=== PATIENT | male | born 1950 | race Caucasian/White ===

== ENCOUNTER 2021-05-30 06:42 | Inpatient (IN) ==
--- NOTE | 2021-05-23 12:46 | History & Physical Report ---
Date of Service May 23, 2021 date of surgery: 05/30/21 Procedure: Right Total Knee Arthroplasty Surgeon: Shad Christopher Assessment & Plan (1) Arthritis of right knee: Plan: presents for evaluation of right knee pain, has been chronic in nature. he has undergone recent viscosupplementation without any relief. He uses NSAIDs and Tylenol without relief. no improvement with Euflexxa. we discussed options and reviewed x-rays, showing advanced DJD of the right knee. he would like to proceed with right total knee arthroplasty, richey and nephew patient matched at [facility], he would like to be outpatient joint program. will place patient on ASA 81mg po bid x 1 month post op for DVT prophylaxis. The risks and benefits have been discussed including, but not limited to, risk of infection, nerve injury, stiffness, loss of motion, failure to improve, etc. Reasonable outcomes and options of treatment were discussed. An explanation of appropriate alternatives to the procedure that may be advantageous were discussed and their risks and benefits, as well as the risks and benefits of not proceeding with treatment. I offered to answer any additional inquiries concerning the treatment involved. All the patient's questions were answered. The patient is agreeable, understanding of the treatment plan and alternatives, and wishes to proceed with the treatment plan. History of Present Illness Chief Complaint: right knee pain Primary Care Provider: Mohan Breaux MD Mr Carr is a 70 year old male who complains of right knee pain, presents for pre-op evaluation prior to a right total knee replacement by Dr Christopher at [facility]. He complains of pain, decreased range of motion and stiffness in his right knee. Currently the patient states that the symptoms are moderate-severe and rated as 6/10. The pain is described as aching, sharp and throbbing. His symptoms are aggravated by ascending stairs, daily activities, first steps while awake walking. Prior NSAIDs include IBU and Aleve, as well as uses Tylenol for pain. He has been treated with previous visco injections in the past without much relief. Allergies Allergy/AdvReac Type Severity Reaction Status Date / Time No Known Allergies Allergy Verified 12/08/20 10:45 Home Medications Medication Instructions Recorded Confirmed Type ascorbic acid (vitamin C) 500 mg 500 mg PO QAM 12/08/20 12/08/20 History chewable tablet (Vitamin C) cannabidiol 1 tab PO DAILY 12/08/20 12/08/20 History omeprazole 20 mg capsule,delayed 20 mg PO QAM 12/08/20 12/08/20 History release tramadol 50 mg tablet 100 mg PO Q6H PRN 12/08/20 12/08/20 History Past Med/Surg History Medical History Degenerative joint disease Diastolic dysfunction Noted on echo-patient asymptomatic per PCP note Dyslipidemia GERD (gastroesophageal reflux disease) Well controlled, stable. Granuloma annulare Hypertension Controlled per patient Osteoarthritis Type 2 diabetes mellitus Controlled with weight and diet per patient Surgical History History of cataract surgery R/L History of colonoscopy History of esophagogastroduodenoscopy (EGD) History of herniorrhaphy History of tonsillectomy S/P trigger finger release R/L ring finger Family History Brother Family hx of colon cancer Social History Smoking Status: Never smoker Second Hand Exposure: No; Hx Alcohol Use: No Hx Substance Use: No Preferred Language: Urdu Communication Ability: Effective Air Brake Adjuster Required: No Beliefs That Will Affect Care: None Current Living Situation: Spouse Feels Safe at Home: Yes Assistive Devices: Denture - Upper and Denture - Lower Review of Systems Review of Systems: All systems reviewed & are unremarkable except as noted in HPI & below Constitutional: no fever, no chills and no sweats Respiratory: no cough and no dyspnea Cardiovascular: no chest pain, no dyspnea and no orthopnea Gastrointestinal: no abdominal pain, no nausea and no vomiting Musculoskeletal: as per Subjective / HPI Physical Exam Physical Exam: HT: 5ft 6in WT: 90.72kg Constitutional: WD/WN, vitals as above no acute distress Respiratory: normal respiratory effort, lungs clear to auscultation no respiratory distress, no labored breathing and does not use accessory muscles Cardiovascular: RRR, no murmur, no edema Gastrointestinal (Abdomen): normal bowel sounds, soft, nontender, no hepatosplenomegaly Musculoskeletal: Knee: + knee abnormal to inspection (RIGHT KNEE- ), + effusion (+1 effusion), + limited ROM of knee (ROM 0/3/110), + knee ROM with crepitation, + joint line tenderness (medial joint line) and + Kaylynn's sign positive; no deformity, no skin erythema, no ecchymosis, no valgus laxity, no varus laxity, anterior drawer test negative, Timothy's sign negative and pivot shift test negative Results & Data Results & Data ([facility]) Diagnostic Findings 4 views right knee showing advanced DJD of the right knee, bone on bone changes, narrowing medial compartment an PF joint with osteophyte formation and subchondral sclerosis and cystic changes. no acute bony pathology noted. Assessment: DJD of the right knee
--- NOTE | 2021-05-28 11:48 | Anesthesiology Consultation ---
Date of Service May 28, 2021 Assessment & Plan (1) Encounter for pre-operative examination: - check BSG am DOS. - medical pre-op evaluation and clearance 05/25/2021 [facility]: "...Dr. Christopher. Pre- operative evaluation for: TKA, right...hypertension borderline today. Has stopped losartan. Could consider better control, but not inhibiting of surgery...A1c 6.2%...can proceed as scheduled..." - Outpatient (Same Day) Joint Pathway assessment: Patient determined by cardiology to be a "moderate perioperative cardiovascular risk secondary to limited functional capacity and risk factors." Given decreased functional capaci ty and elevated cardiac risk assessment, patient is not appropriate candidate for outpatient joint pathway. - Per Dr. Wilkinsoni1 "Stress echo negative for inducible ischemia. Stable aortic valve sclerosis and mild aortic valve regurgitation.Patient may proceed with orthopedic surgery." - COVID screening: Per cutter down on 05/24/2021: Travel screen negative, no known COVID-19 positive contacts or current COVID-19 related symptoms in past 2 weeks. Patient vaccinated. Surgeon arranging preop COVID testing, scheduled 05/28/2021. Awaiting results. Chart Review Chart Review: Acceptable Risk for Surgery and Patient NOT seen in Pre Admission Testing History Surgery Operation Date: 05/30/21 09:25 Proposed Procedures p Right Total Knee Arthroplasty - Shad Christopher DO Surgery re-scheduled since 11/2020 PAT anesthesia review. Height/Weight Height: 5 ft 6 in Weight: 88.451 kg Allergies Allergy/AdvReac Type Severity Reaction Status Date / Time No Known Allergies Allergy Verified 05/24/21 13:55 Medications Home Medications Medication Instructions Recorded Confirmed Last Taken ascorbic acid (vitamin C) 500 mg 500 mg PO QAM 12/08/20 05/24/21 Unknown chewable tablet (Vitamin C) cannabidiol 1 tab PO DAILY 12/08/20 05/24/21 Unknown omeprazole 20 mg capsule,delayed 20 mg PO QAM 12/08/20 05/24/21 Unknown release tramadol 50 mg tablet 100 mg PO Q6H PRN 12/08/20 05/24/21 Unknown Vitamin D3 1 dose PO QAM 05/24/21 05/24/21 Unknown Past Medical History Medical History Bug bites says went to [facility] a few days ago with mult bug bits to arms, left ankle -- was told they were mite bites -- said none on RLE. given topical cream and cleared up. instructed to make surgeon's office aware. Degenerative joint disease Diastolic dysfunction Noted on echo-patient asymptomatic per PCP note Dyslipidemia GERD (gastroesophageal reflux disease) Well controlled, stable. Granuloma annulare Hypertension Controlled per patient Osteoarthritis Type 2 diabetes mellitus Controlled with weight and diet per patient Past Family History Family History Brother Family hx of colon cancer Past Surgical History Surgical History History of cataract surgery R/L History of colonoscopy History of esophagogastroduodenoscopy (EGD) History of herniorrhaphy History of tonsillectomy S/P trigger finger release R/L ring finger Past Anesthesia History No Hx of Anesthesia Complications History of PONV No Hx of Motion Sickness Social History Smoking Status: Never smoker Do You Dip or Chew Tobacco: No Hx Alcohol Use: No Hx Substance Use: No substance use type: does not use Review of Systems Snoring reported by patient's per patient. Denies witnessed apneas or sleep study. Patient denies chest pain, shortness of breath, dyspnea on exertion, fever, chills, cough, wheezing, palpitations. Physical Exam Vital Signs Vitals BP 171/79 P 77 TEMP 98.5 SP02 95 RESP 16 Patient states is anxious at visits for his pre-op consultations including study, confirms that all questions were fully answered to his satisfaction today. He denied additional questions or concerns. Patient reports home BP readings 130s/70s. Full cervical extension range of motion without pain. Full TMJ range of motion. TMD 3.5 finger breaths Mallampati Score 2 Dentition: edentulous, full upper and lower dentures Lungs: Normal respiratory effort. Clear throughout to auscultation, no adventitious breath sounds Cardiac: regular rate and rhythm, no murmurs noted Carotid arteries: negative bruit bilat Extremities: no distal extremity edema Lab Results Anesthesia Preop Results Results Anesthesia Widget: WBC 9.31 K/uL (4.8-10.8) 05/24/21 Hgb 15.3 g/dL (14.0-18.0) 05/24/21 Hct 44.9 % (42-52) 05/24/21 Plt 252 K/uL (130-400) 05/24/21 Na 136 mmol/L (136-145) 05/24/21 K 4.1 mmol/L (3.5-5.1) 05/24/21 Cl 103 mmol/L (98-107) 05/24/21 CO2 27 mmol/L (21-32) 05/24/21 BUN 18 mg/dl (6-23) 05/24/21 Creat 0.99 mg/dl (0.6-1.4) 05/24/21 Glucose Level 111 mg/dl (70-99(Fasting)) H 05/24/21 PT 10.8 Seconds (9.0-12.0) 05/24/21 PTT 29.0 Seconds (21.0-31.0) 05/24/21 INR 1.0 (0.9-1.1) 05/24/21 HA1c 6.2 % (4.5-5.6) H 05/24/21 Urine Color Yellow 05/24/21 Urine Appearance Clear (Clear) 05/24/21 Urine pH 5.0 (4.5-7.5) 05/24/21 Urine Specific [place] 1.021 (1.000-1.030) 05/24/21 Urine Protein Negative (Negative) 05/24/21 Urine Glucose (UA) Negative (Negative) 05/24/21 Urine Ketones Negative (Negative) 05/24/21 Urine Blood Negative (Negative) 05/24/21 Urine Nitrite Negative (Negative) 05/24/21 Urine Bilirubin Negative (Negative) 05/24/21 Urine Urobilinogen Negative (Negative) 05/24/21 Urine Leukocyte Esterase Negative (Negative) 05/24/21 Testing Electrocardiogram Date: 12/11/20 Normal sinus rhythm at 77 bpm. Reviewed and dictated by Dr. Stan Levi. Chest X-Ray Date: 12/11/20 Mild linear subsegmental atelectasis/scarring of the lingula. No acute process. Echocardiogram Date: 09/15/19 EF: 62% Mild concentric LVH. Grade I diastolic dysfunction. Mild aortic valve regurgitation. Normal LV systolic function without regional wall motion abnormality. Aortic valve is moderately calcified. Aortic stenosis is absent. Stress Test Date: 12/27/20 Dobutamine The stress echo is negative for inducible ischemia. The aortic valve was not well visualized but appeared to be trileaflet in morphology. The aortic valve is moderately calcified. Aortic stenosis is absent. Mild aortic valve regurgitation is present. The aortic root and proximal ascending aorta are normal sized. EF 60-64%. No regional wall motion abnormalities. MPHR 104%.
[~2021-05-30 06:42] MED LIST: ACETAMINOPHEN 500 MG TAB PO SCH; CeleBREX 200 MG CAP PO SCH; FAMOTIDINE 20 MG TAB PO SCH; GABAPENTIN 300 MG CAP PO SCH; LR 500ML BOLUS, THEN 15ML/HR IV SCH; METOCLOPRAMIDE HCL 10 MG TABLET PO SCH; ROPIVACAINE 0.5% HCL/PF 150 MG, BUPIVACAINE 0.75% MPF 20 ML, EPINEPHrine 30MG/30ML (OR ... INSTIL SCH; TRANEXAMIC ACID 1,000 MG **IV Intra-op IV SCH; TRANEXAMIC ACID 1,000 MG **IV Pre-op IV SCH; ceFAZolin 2000MG 2,000 MG/15 ML SYR IV SCH; oxyCODONE HCL 10 MG TABCR (OxyCONTIN) PO SCH
[2021-05-30] MEDS ORDERED: BUPIVACAINE 0.25% 30 ML VIAL ONE (07:12)
[2021-05-30] MEDS ORDERED: BUPIVACAINE 0.5 % 5 MG/1 ML PF 10ML VIAL ONE (07:12)
--- NOTE | 2021-05-30 07:34 | History & Physical Bridge Note ---
Date of Service May 30, 2021 History & Physical Bridge Note I have examined the patient, reviewed the History & Physical and in the interval since the performance of the History & Physical I have noted the following changes of clinical significance: no changes noted
[2021-05-30] MEDS ORDERED: fentaNYL citrate 100 MCG/2 ML VIAL IV PRN (07:59)
[2021-05-30] MEDS ORDERED: ePHEDrine sulfate 50 MG/ML AMP IV PRN (07:59)
[2021-05-30] MEDS ORDERED: ONDANSETRON INJ 2 MG/ML 2 ML VIAL IV PRN ×2 (07:59→13:17)
[2021-05-30] MEDS ORDERED: ATROPINE SULFATE 0.1 MG/ML 10ML SYR IV PRN (07:59)
[2021-05-30] MEDS ORDERED: MIDAZOLAM HCL 1 MG/ML 2ML VIAL ONE (08:26)
[2021-05-30] MEDS ORDERED: ORTHO JOINT ANESTHETIC ONE (09:50)
[2021-05-30] MEDS ORDERED: PROPOFOL IV EMULSION 10 MG/ML 20 ML VIAL IV ONE (10:58)
--- NOTE | 2021-05-30 11:14 | Operative Report ---
Post Operative Report Pre & Post Diagnosis Operation Date: 05/30/21 09:25 Pre-Op Diagnosis: Right Knee Osteoarthritis Post-Op Diagnosis: Right Knee Osteoarthritis I identified the patient and participated in the time-out.: Yes Procedure Operation Date: 05/30/21 09:25 Actual Procedures p Right Total Knee Arthroplasty(Right) utilizing [employer] NephAk[employer] journey 2 patient matched size 7 femur 7 tibia 13 polyconstrained 32 oval patella Shad Christopher DO Surgeon Shad Christopher DO [employer] Inspector Chris CHOW Estimated Blood Loss 5 Findings Consistent with Post-Op Diagnosis Patient presents with severe end-stage DJD 10 degree flexion contracture 12 degree varus alignment eburnated [id number] marginal osteophyte subchondral sclerosis moderate to large effusion Specimens Bone and cartilage Drains Medium bore Hemovac Anesthesia Type MAC Spinal Regional Complications none Disposition Accompanied Patient To Recovery: No Disposition: Recovery Room Indications Patient presents with severe end-stage DJD right knee varus alignment subchondral sclerosis marginal osteophytes eburnated [id number] tricompartmental above intraoperative findings were noted patient is failed times a corticosteroid injection viscosupplementation relative rest activity modification Description of Procedure After proper prepping and draping of the Right lower extremity anterior midline incision was made over the region of the extensor extensor mechanism after meticulous hemostasis was obtained and maintained in subcutaneous tissues a medial parapatellar incision was made The patella was subluxed lateralward the medial lateral gutter were cleaned from any hypertrophic synovitis and scar tissue of the distal femoral block was placed and the distal femoral osteotomy cut was made subsequently the chamfers anterior and posterior osteotomy cuts were made utilizing the 4-in-1 block the tibia was subsequently subluxed anteriorward medial and ateral meniscal remnants were excised in their entirety remnants of the anterior and posterior cruciate ligaments were excised in their entirety excellent exposure of the proximal tibia was obtained the tibial osteotomy guide was placed on the proximal tibial osteotomy cut was made once again the knee was irrigated with copious amounts of sterile saline solution the patella was subsequently everted lateralward thickened scar tissue around the patella was removed the patella was subsequently cut utilizing a freehand technique and was drilled prepared for final preparation and placement of patella socially flexion-extension gaps were checked and the equal and symmetric trials were placed to the appropriate femoral and tibial trials with poly-spacer being placed for equal flexion and extension gaps and full range of motion including extension to 0 and flexion to 140 the trial components after having been taken to recovery range of motion was subsequently removed meticulous hemostasis was obtained and maintained subsequently a knee block injection of joint cocktail including ropivacaine 0.5% 150 mg. Bupivacaine 0.5% epinephrine 1-200,030 mL's toradol 30 mg dexamethasone 4 mg ketamine 10 mg clonidine 100 micrograms normal saline solution 30 mg was infiltrated into the soft tissues of the posterior knee medial lateral gutters and periosteal synovium special attention was paid to protect neurovascular structures at all times subsequently trial components having been removed the knee was irrigated with sterile saline solution. debris was removed the proximal tibia was subsequently prepared and was made ready for the placement of the tibial component tibial component was also cemented and tamped into position the femoral component was subsequently placed and cemented in the position the patellar component was subsequently cemented in position because hemostasis once again obtained and maintained wound having been thoroughly irrigated with debridement and debridement lavage was performed as well as a medial parapatellar incision closed with #1 Vicryl in interrupted fashion subcutaneous was closed with #2 Vicryl skin was closed with skin clips. PA-C was necessary for prepping and drapping as well as wound closure of deep fascia Sub cutaneous tissue and skin and was necessary for the case. A sterile compressive dressing was placed patient was taken to recovery in stable condition of report dictated by Ashwin I attest to the content of the Intraoperative Record and any orders documented therein. Any exceptions are noted below.Due to the complex nature of the procedure, the entire surgery was performed with the operational assistance of Stephy CHOW The custody assistant, under direct supervision, was involved in the actual performance of all aspects of the surgical procedure including hemostasis, tissue retraction and incision, instrument management, patient positioning, and wound closure. I attest to the content of the Intraoperative Record and any orders documented therein. Any exceptions are noted below.
[2021-05-30] MEDS: SODIUM CHLORIDE 0.9% 1000ML 1,000 ML IV SCH ×2 (13:15→23:30)
[2021-05-30] MEDS ORDERED: bisacodyL 10 MG SUPP PR PRN (13:17)
[2021-05-30] MEDS ORDERED: NALOXONE HCL 0.4 MG/1 ML VIAL/CARP IV PRN (13:17)
[2021-05-30] MEDS ORDERED: MAGNESIUM HYDROXIDE SUSP 30 ML UDC PO PRN (13:17)
--- NOTE | 2021-05-30 13:40 | XRay Report ---
XR knee RT 1 or 2V routine CLINICAL HISTORY: Surgical Post Op TECHNIQUE: 2 views of the right knee were obtained. Comparison: None available at the time of this dictation. FINDINGS: Patient is status post total knee arthroplasty with expected postsurgical changes including soft tiss ue swelling and subcutaneous emphysema. No periarticular lucency or hardware fracture is seen. The al ignment is anatomic. No joint effusion is seen. No soft tissue abnormality is seen. IMPRESSION: Expected postoperative appearance status post placement of total knee arthroplasty. ACT 112: Negative or not required by law. Electronically signed by: Brendon Aparicio M.D. 05/30/2021 1:39 PM
[2021-05-30] MEDS: ACETAMINOPHEN 500 MG TAB PO SCH ×2 (14:23→21:28)
--- NOTE | 2021-05-30 15:57 | Anesthesiology Progress Note ---
Date of Service May 30, 2021 Anesthesia Post Procedure Vital Signs Vital Signs: Temp Pulse Pulse Pulse Resp BP Pulse Ox 05/30/21 15:10 65 18 121/69 99 05/30/21 14:14 36.7 C 60 16 152/76 H 98 05/30/21 13:43 61 16 132/76 100 05/30/21 13:10 36.7 C 54 L 16 118/70 99 05/30/21 12:50 52 L 16 131/65 98 05/30/21 12:40 36.0 C L 52 L 16 130/63 99 05/30/21 12:30 57 L 21 122/69 100 05/30/21 12:20 59 L 20 107/62 96 05/30/21 12:10 64 16 111/63 99 05/30/21 12:00 69 16 115/60 100 05/30/21 11:53 36.3 C L 67 12 115/62 100 05/30/21 07:10 36.8 C 84 20 164/84 H 97 Pain Intensity Right Knee: Pain Intensity: 0 Transfer of Care Handoff Completed per policy Notes Mental Status: alert / awake / arousable Patient Amnestic to Procedure: Yes Nausea / Vomiting: adequately controlled Pain: adequately controlled Airway Patency, RR, SpO2: stable & adequate BP & HR: stable & adequate Hydration State: stable & adequate Neuraxial Anesthesia: was administered and sensory block is resolving Anesthetic Complications: no major complications apparent and Pt Satisfied with anesthetic care
[2021-05-30] MEDS: oxyCODONE HCL IR 5 MG TAB (IMMEDIATE RELEASE) PO PRN ×2 (17:14→21:28)
[2021-05-30] MEDS: ceFAZolin 2000MG 2,000 MG/15 ML SYR IV SCH (17:15)
[2021-05-30] MEDS: HYDROmorphone INJ 0.5 MG/0.5 ML SYR IV PRN (17:52)
[2021-05-30] MEDS ORDERED: SENNA 8.6 MG TAB PO SCH (21:00)
[2021-05-30] MEDS: ASPIRIN 81 MG ECTAB PO SCH (21:28)
[2021-05-30] MEDS: DOCUSATE SODIUM 100 MG CAP PO SCH (21:29)
[2021-05-31] MEDS: HYDROmorphone INJ 0.5 MG/0.5 ML SYR IV PRN (00:02)
[2021-05-31] MEDS: ceFAZolin 2000MG 2,000 MG/15 ML SYR IV SCH (03:07)
[2021-05-31] MEDS: ACETAMINOPHEN 500 MG TAB PO SCH (06:01)
[2021-05-31 06:26] LABS: Hematocrit (blood only) 39.1 % (42-52); Hemoglobin 12.9 g/dL (14.0-18.0); Mean Corpuscular Hemoglobin 28.4 pg (25-34); Mean Corpuscular Volume 86.1 fL (80-100); Mean Platelet Volume 10.1 fL (7.4-10.4); Platelet Count 192 K/uL (130-400); RDW Coefficient of Variation 12.5 % (11.5-14.5); RDW Standard Deviation 39.4 fL (36.4-46.3); Red Blood Count 4.54 M/uL (4.7-6.1); White Blood Count 11.16 K/uL (4.8-10.8)
[2021-05-31 06:50] LABS: BUN Creatinine Ratio 17.1 (10-20); Calcium 8.8 mg/dl (8.5-10.1); Creatinine Clr Calc Pharmacy 66.4 ml/min; Est GFR (African American) 81.8 ml/min; Est GFR (Non-African American) 70.6 ml/min; Potassium 4.6 mmol/L (3.5-5.1)
[2021-05-31] MEDS: oxyCODONE HCL IR 5 MG TAB (IMMEDIATE RELEASE) PO PRN ×2 (07:40→11:39)
[2021-05-31] MEDS: DOCUSATE SODIUM 100 MG CAP PO SCH (07:42)
[2021-05-31] MEDS: ASPIRIN 81 MG ECTAB PO SCH (07:42)
[2021-05-31] MEDS ORDERED: CHOLECALCIFEROL 400 UNITS 10 MCG TAB PO SCH (09:00)
[2021-05-31] MEDS ORDERED: MULTIVITAMIN TAB PO SCH (09:00)
--- NOTE | 2021-05-31 10:44 | Orthopedic Progress Note ---
Date of Service May 31, 2021 Assessment & Plan (1) Arthritis of right knee: Plan: Postop day 1 status post right TKA PT/OT protocols. Weightbearing as tolerated. Patient is progressing with his physical therapy today. DVT prophylaxis-aspirin p.o. twice daily, Inocencio, NAGA adam. Pain management as written. DC planning-patient is planning for home health services. We will plan for discharge later today. Admission and Anticipated Discharge Date Admission Date: May 30, 2021 Subjective POD 1 Pt sitting in chair at bedside. No complaints. Pain controlled. Mild soreness over the patella and at the upper thigh where the tourniquette was located. Denies SOB,CP,LH. Physical Exam Physical Exam: Dressings are clean, dry, and intact. Calves are soft nontender. Neurovascular is intact. Toes are mobile. Dorsiflexion and plantar flexion are strong in the operative side. Hemovac drainage showed 200 mL at 9:55 AM and 125 mL near 6AM. Results & Data ([facility]) Vital Signs (Past 12 Hours) Vital Signs Temp Pulse Pulse Resp BP Pulse Ox 05/31/21 07:30 36.3 C L 64 14 136/68 97 05/31/21 03:13 36.3 C L 67 16 138/73 94 05/30/21 23:03 36.4 C L 60 16 129/71 99 Laboratory Results Laboratory Results WBC 11.16 K/uL (4.8-10.8) H 05/31/21 05:47 RBC 4.54 M/uL (4.7-6.1) L 05/31/21 05:47 Hgb 12.9 g/dL (14.0-18.0) L 05/31/21 05:47 Hct 39.1 % (42-52) L 05/31/21 05:47 MCV 86.1 fL (80-100) 05/31/21 05:47 MCH 28.4 pg (25-34) 05/31/21 05:47 MCHC 33.0 g/dL (32-36) 05/31/21 05:47 RDW Std Deviation 39.4 fL (36.4-46.3) 05/31/21 05:47 RDW Coeff of Juliette 12.5 % (11.5-14.5) 05/31/21 05:47 Plt Count 192 K/uL (130-400) 05/31/21 05:47 MPV 10.1 fL (7.4-10.4) 05/31/21 05:47 Sodium 139 mmol/L (136-145) 05/31/21 05:47 Potassium 4.6 mmol/L (3.5-5.1) 05/31/21 05:47 Chloride 106 mmol/L (98-107) 05/31/21 05:47 Carbon Dioxide 29 mmol/L (21-32) 05/31/21 05:47 Anion Gap 4 (3-11) 05/31/21 05:47 BUN 18 mg/dl (6-23) 05/31/21 05:47 Creatinine 1.05 mg/dl (0.6-1.4) 05/31/21 05:47 Est Cr Clr Drug Dosing 66.4 ml/min 05/31/21 05:47 Est GFR ( Amer) 81.8 ml/min 05/31/21 05:47 Est GFR (Non-Af Amer) 70.6 ml/min 05/31/21 05:47 BUN/Creatinine Ratio 17.1 (10-20) 05/31/21 05:47 Glucose 140 mg/dl (70-99(Fasting)) H 05/31/21 05:47 POC Glucose 110 mg/dl (70-99) H 05/30/21 11:57 Calcium 8.8 mg/dl (8.5-10.1) 05/31/21 05:47 SARS-CoV-2, RNA, NAAT NEGATIVE (NEGATIVE) 05/30/21 07:03 Blood Type O Positive 05/30/21 06:59 Antibody Screen NEGATIVE 05/30/21 06:59 Impressions Knee X-Ray 05/30/21 11:57 XR knee RT 1 or 2V routine CLINICAL HISTORY: Surgical Post Op TECHNIQUE: 2 views of the right knee were obtained. Comparison: None available at the time of this dictation. FINDINGS: Patient is status post total knee arthroplasty with expected postsurgical changes including soft tissue swelling and subcutaneous emphysema. No periarticular lucency or hardware fracture is seen. The alignment is anatomic. No joint effusion is seen. No soft tissue abnormality is seen. IMPRESSION: Expected postoperative appearance status post placement of total knee arthroplasty. ACT 112: Negative or not required by law. Electronically signed by: Brendon Aparicio M.D. 05/30/2021 1:39 PM
--- NOTE | 2021-06-01 10:19 | Discharge Summary ---
Date of Service June 01, 2021 Admission HPI Per Admitting Provider Mr Maria is a 70 year old male who complains of right knee pain, presents for pre-op evaluation prior to a right total knee replacement by Dr Christopher at [facility]. He complains of pain, decreased range of motion and stiffness in his right knee. Currently the patient states that the symptoms are moderate-severe and rated as 6/10. The pain is described as aching, sharp and throbbing. His symptoms are aggravated by ascending stairs, daily activities, first steps while awake walking. Prior NSAIDs include IBU and Aleve, as well as uses Tylenol for pain. He has been treated with previous visco injections in the past without much relief. Admission Exam Per Admitting Provider Physical Exam: HT: 5ft 6in WT: 90.72kg Constitutional: WD/WN, vitals as above no acute distress Respiratory: normal respiratory effort, lungs clear to auscultation no respiratory distress, no labored breathing and does not use accessory muscles Cardiovascular: RRR, no murmur, no edema Gastrointestinal (Abdomen): normal bowel sounds, soft, nontender, no hepatosplenomegaly Musculoskeletal: Knee: + knee abnormal to inspection (RIGHT KNEE- ), + effusion (+1 effusion), + limited ROM of knee (ROM 0/3/110), + knee ROM with crepitation, + joint line tenderness (medial joint line) and + Kaylynn's sign positive; no deformity, no skin erythema, no ecchymosis, no valgus laxity, no varus laxity, anterior drawer test negative, Timothy's sign negative and pivot shift test negative Principal Diagnosis Right Knee Osteoarthritis Discharge Data Allergies Allergy/AdvReac Type Severity Reaction Status Date / Time No Known Allergies Allergy Verified 05/30/21 07:06 Procedures Performed Operation Date: 05/30/21 09:25 Actual Procedures p Right Total Knee Arthroplasty(Right) - Shad Christopher DO Ordered Studies 05/30/21 05:00 US - OR guided needle placemen Routine Hospital Course (1) Arthritis of right knee: Patient:AMANDA MARIA Admit Date:05/30/21 MR#:[id number] Att Phy:Shad Chrsitopher,D.OYajaira Acct ID:[id number] Eleanor Phy:Mohan Breaux MD Date:1950 Aidan Phy: Age:70 Location:3E Sex:M Room/Bed:E3181 cc: ~ *NOTICE TO RECEIVING REPUBLICAN/AGENCY This information is strictly Confidential and protected under [place] law. [place] law prohibits you from making any further disclosure of this information unless further disclosure is expressly permitted by the written consent of the person to whom it pertains or is authorized by law. A general authorization for the release of medical or other information is not sufficient for this purpose. Hospital accepts no responsibility if the information is made available to any other person, INCLUDING THE PATIENT. Date of Service May 31, 2021 Assessment & Plan (1) Arthritis of right knee: Plan: Postop day 1 status post right TKA PT/OT protocols. Weightbearing as tolerated. Patient is progressing with his physical therapy today. DVT prophylaxis-aspirin p.o. twice daily, SCDs, NAGA adam. Pain management as written. DC planning-patient is planning for home health services. We will plan for discharge later today. Admission and Anticipated Discharge Date Admission Date: May 30, 2021 Subjective POD 1 Pt sitting in chair at bedside. No complaints. Pain controlled. Mild soreness over the patella and at the upper thigh where the tourniquette was located. Denies SOB,CP,LH. Physical Exam Physical Exam: Dressings are clean, dry, and intact. Calves are soft nontender. Neurovascular is intact. Toes are mobile. Dorsiflexion and plantar flexion are strong in the operative side. Hemovac drainage showed 200 mL at 9:55 AM and 125 mL near 6AM. Results & Data ([facility]) Vital Signs (Past 12 Hours) Vital Signs Temp Pulse Pulse Resp BP Pulse Ox 05/31/21 07:30 36.3 C L 64 14 136/68 97 05/31/21 03:13 36.3 C L 67 16 138/73 94 05/30/21 23:03 36.4 C L 60 16 129/71 99 Laboratory Results Laboratory Results WBC 11.16 K/uL (4.8-10.8) H 05/31/21 05:47 RBCE 4.54 M/uL (4.7-6.1) L 05/31/21 05:47 Hgb 12.9 g/dL (14.0-18.0) L 05/31/21 05:47 Hct 39.1 % (42-52) L 05/31/21 05:47 MCV 86.1 fL (80-100) 05/31/21 05:47 MCH 28.4 pg (25-34) 05/31/21 05:47 MCHC 33.0 g/dL (32-36) 05/31/21 05:47 RDW Std Deviation 39.4 fL (36.4-46.3) 05/31/21 05:47 RDW Coeff of VarE 12.5 % (11.5-14.5) 05/31/21 05:47 Plt Count 192 K/uL (130-400) 05/31/21 05:47 MPV 10.1 fL (7.4-10.4) 05/31/21 05:47 Sodium 139 mmol/L (136-145) 05/31/21 05:47 Potassium 4.6 mmol/L (3.5-5.1) 05/31/21 05:47 Chloride 106 mmol/L (98-107) 05/31/21 05:47 Carbon Dioxide 29 mmol/L (21-32) 05/31/21 05:47 D Anion Gap 4 (3-11) 05/31/21 05:47 BUN 18 mg/dl (6-23) 05/31/21 05:47 Creatinine 1.05 mg/dl (0.6-1.4) 05/31/21 05:47 Est Cr Clr Drug Dosing 66.4 ml/min 05/31/21 05:47 Est GFR ( Amer) 81.8 ml/min 05/31/21 05:47 Est GFR (Non-Af Amer) 70.6 ml/min 05/31/21 05:47 BUN/Creatinine Ratio 17.1 (10-20) 05/31/21 05:47 Glucose 140 mg/dl (70-99(Fasting)) H 05/31/21 05:47 POC Glucose 110 mg/dl (70-99) H 05/30/21 11:57 Calcium 8.8 mg/dl (8.5-10.1) 05/31/21 05:47 SARS-CoV-2, RNA, NAAT NEGATIVE (NEGATIVE) 05/30/21 07:03 Blood Type O Positive 05/30/21 06:59 Antibody Screen NEGATIVE 05/30/21 06:59 Impressions Knee X-Ray 05/30/21 11:57 XR knee RT 1 or 2V routine CLINICAL HISTORY: Surgical Post Op TECHNIQUE: 2 views of the right knee were obtained. Comparison: None available at the time of this dictation. FINDINGS: Patient is status post total knee arthroplasty with expected postsurgical changes including soft tissue swelling and subcutaneous emphysema. No p eriarticular lucency or hardware fracture is seen. The alignment is anatomic. No joint effusion is seen. No soft tissue abnormality is seen. IMPRESSION: Expected postoperative appearance status post placement of total knee arthroplasty. ACT 112: Negative or not required by law. Total Time Total Time Spent Total Time Spent (In Minutes): 10 Discharge Plan Discharge Items Patient Disposition: Home - Home Health Services Reason For Visit: Right Knee Osteoarthritis Discharge Diagnosis: Right Knee Osteoarthritis Activity: Per Instructions section Weightbearing: Right weightbearing Weightbearing Comment: as tolerated with walker Non-emergency contact: Surgeon Call non-emergency contact if: your pain is not controlled, your temperature is above 101.5, your wound has increased redness and your wound has increased drainage Follow-up/Referrals: Mohan Breaux MD [Primary Care Provider] - Shad Christopher DO [Surgeon] - 06/12/21 9:00 am (Follow up in 14 days from the day of surgery for your first wound check. Appt with Cristobal Guerrero PA-C; [place], [place]) Diet: Regular Addtl Attending Provider Instructions: ACTIVITY RECOMMENDATIONS: SELF CARE INSTRUCTIONS AFTER TOTAL KNEE REPLACEMENT A. You may need to continue a physical therapy program after discharge from the hospital. There are several options available to you. Your doctor will assist you in selecting the best one for you. 1. An out-patient facility 2 to 3 times a week for therapy or home therapy. 2. Continue working on all exercises taught to you in the hospital. Your goals should be to increase bending of your knee to 90 degrees and beyond and to fully straighten your knee. B. You may progress at your own pace from walking with a walker or crutches to a cane; then to no assistive devices. C. Make walking a part of your daily routine. Be up as much as comfortable with rest periods throughout the day. Rest with leg elevation is very important. Use the ice wrap frequently for the first 3-4 weeks. D. There are no restrictions on activities. You may ride in a car, shop, participate in meat scrubber and all social activities. E. Wear the long elastic stockings (NAGA hose) 20 hours a day for 2 weeks after surgery. They can be removed several times a day for laundering and for a bath. F. You may shower, no tub baths until cleared by your doctor. SPECIAL CARE INSTRUCTIONS: VERY IMPORTANT TO READ AND REVIEW A. There are a few signs you need to watch for after you are home. Call [facility] if you notice any of the followin. Increased severe knee pain. Some pain is expected especially when you exercise. 2. Increased swelling in your leg or knee; pain or swelling of the calf muscle in either lower leg. 3. Any fluid drainage from the incision. 4. Shortness of breath or chest pain. B. Please call [facility] at if you have any concerns or questions about your operation or recovery. The doctor or his nurse will return your call promptly. C. You must take antibiotics before dental work, bladder, bowel or other surgery. Your doctor will provide you with a permanent care to carry describing this precaution. IMPORTANT: * REMEMBER TO TAKE ASPIRIN, 81 MG, TWICE DAILY FOR 4 WEEKS UNLESS OTHERWISE DIRECTED. THIS IS YOUR BLOOD THINNER. * CALL IF INCREASED PAIN, REDNESS, DRAINAGE OR FEVER GREATER THAT 101. * WEAR NAGA HOSE 20 HOURS PER DAY FOR 2 WEEKS. * Prevena- This is a large suction dressing covering your incision. This will help pull any excess drainage from the wound and allow your incision to heal properly. You may shower with this if you can keep the unit outside of the shower. If any bleeding or leakage is noted please call your doctor's office. This will remain on your incision for 7 days and then should be removed. This can be done yourself or by the home nursing staff if applicable. The entire unit is disposable once removed. Once removed, keep incision clean and dry. If redness or drainage is noted, please call your surgeon. . * DERMABOND Prineo- This is a mesh tape dressing that is covered with glue. It should remain in place until the incision is properly healed, usually 10-14 days. This dressing is designed to naturally slough off. You may trim the excess mesh tape as it peels off. Incision may be briefly wet in a shower. Dry immediately by blotting with a clean, dry towel. Do not bath or swim until instructed by your doctor. Do not scratch, rub, or pick at the dressing. Do not apply any topical ointments or lotions until dressing is completely removed and/or instructed by your doctor. There may be a small piece of suture material at one end of your incision. Do not pull or trim this. If it is bothersome or catching on clothing, you may cover it with a band-aid. FOLLOW UP VISIT: If appointment is not already scheduled: Please call [facility] to make a follow-up appointment for 2 weeks after your surgery at . Stand-Alone Forms: [facility] [employer], Smoking Cessation Medications and DC Order Prescriptions: New aspirin 81 mg Tablet,Delayed Release (Dr/Ec) 81 mg PO BID 30 Days Qty: 60 RF: 0 acetaminophen [Tylenol Extra Strength] 500 mg Tablet 1,000 mg PO Q8 14 Days Qty: 84 RF: 0 polyethylene glycol 3350 [Miralax] 17 gram powder in packet 17 g PO DAILY PRN (Reason: constipation) Qty: 5 RF: 0 cefadroxil 500 mg capsule 500 mg PO BID Qty: 28 RF: 1 oxycodone 5 mg Tablet 5 mg PO Q4H MDD 6 PRN (Reason: pain) Qty: 30 RF: 0 Continued ascorbic acid (vitamin C) [Vitamin C] 500 mg Tablet,Chewable 500 mg PO QAM RF: 0 omeprazole 20 mg Capsule,Delayed Release(Dr/Ec) 20 mg PO QAM RF: 0 Vitamin D3 1 dose PO QAM RF: 0 Discontinued tramadol 50 mg Tablet 100 mg PO Q6H PRN (Reason: Pain) RF: 0 cannabidiol 1 tab PO DAILY RF: 0 Discharge Orders: Discharge Order (Routine); Ordered 05/31/21 Ordered By: Chris Krueger Admission Data Admit Date/Time: 05/30/21 11:57 Attending Provider: Shad Christopher Admit Provider: Shad Christopher Primary Care Provider: Mohan Breaux Other Providers: [place],Home Care Other Interventions: Discharge Summary Assessment (RN) Last Done: 05/31/21 11:12
== END 2021-05-31 12:19 | disposition home health service (06) | DRG 470 ==
LOC: ASU 06:42 → 3E 06:42 → OBSVTOIN 11:57